=== PATIENT | male | born 1970 | race Caucasian/White ===

== ENCOUNTER → 2020-07-08 | Outpatient (CLI) | payer OTHER, SELFPAY | LOC: M LABSMTC 14:04 | PROVIDERS: ATTEND Family Medicine | DX: Z20.822 Contact with and (suspected) exposure to COVID-19 (principal) | CPT/HCPCS: C9803; U0003 ==

== ENCOUNTER → 2021-07-07 | Outpatient (CLI) | payer OTHER ==
[~2021-07-07] MED LIST: IRBE75TA4 PO; LISI10TA22 PO; LOSA25TA13 PO; OMEP1CAP73 PO; TEST200I14 IM; VITA1CAP25 PO
== END ==
LOC: M LABSMTC 09:17
PROVIDERS: ATTEND Anesthesiology
DX: Z01.812 Encounter for preprocedural laboratory examination (principal); Z11.52 Encounter for screening for COVID-19

== ENCOUNTER → 2021-10-13 | Outpatient (CLI) | payer OTHER | LOC: M LABSMTC 09:06 | PROVIDERS: ATTEND Anesthesiology | DX: Z01.818 Encounter for other preprocedural examination (principal); Z11.52 Encounter for screening for COVID-19 ==

== ENCOUNTER 2021-10-18 06:33 | Day surgery (SDC) | payer OTHER ==
[~2021-10-18] VITALS: Ht 175.3 cm; Wt 156.4 kg
[~2021-10-18 06:33] MED LIST changes: +NS 1,000 ML IV ONE
[2021-10-18] MEDS ORDERED: fentaNYL 100 MCG/2 ML INJECTION As Ordered ONE (07:44)
[2021-10-18] MEDS ORDERED: LIDOCAINE 2% 100MG/5ML SDV (FOR ANES.) As Ordered ONE (07:44)
[2021-10-18] MEDS ORDERED: propofoL 500 MG/50 ML VIAL As Ordered ONE (07:44)
[2021-10-18 08:20] VITALS: BP 125/80
== END 2021-10-18 08:45 | disposition home or self-care (01) ==
LOC: M OPP 06:33
PROVIDERS: ATTEND Internal Medicine Gastroenterology
DX: Z12.11 Encounter for screening for malignant neoplasm of colon (principal); K63.5 Polyp of colon; K57.30 Diverticulosis of large intestine without perforation or abscess without bleeding; K31.89 Other diseases of stomach and duodenum; R12 Heartburn; K21.00 Gastro-esophageal reflux disease with esophagitis, without bleeding; I10 Essential (primary) hypertension; Z79.890 Hormone replacement therapy; Z79.899 Other long term (current) drug therapy; F17.210 Nicotine dependence, cigarettes, uncomplicated
CPT/HCPCS: 43239; 45380; 45385; 88305; J3010

== ENCOUNTER 2024-12-28 09:30 | Emergency (ER) | payer OTHER ==
[~2024-12-28] VITALS: Ht 175.3 cm; Wt 98.6 kg
[~2024-12-28 09:30] MED LIST changes: +IRBE75TA11 PO; -IRBE75TA4 PO; -NS 1,000 ML IV ONE
[2024-12-28] MEDS: PANTOPRAZOLE 40MG VIAL IV ONE (10:21)
[2024-12-28] MEDS: ONDANSETRON 4MG 2ML VIAL IV ONE (10:21)
[2024-12-28] MEDS: NS (Normal Saline) 0.9% 1,000 ML IV SCH (10:21)
[2024-12-28 10:58] LABS: ALT/SGPT 24 U/L (7.0-40); AST/SGOT 27 U/L (<34); CALCIUM LEVEL 9.1 MG/DL (8.5-10.1); CARBON DIOXIDE LEVEL 24 MMOL/L (20-31); CHLORIDE LEVEL 107 MMOL/L (98-107); CREATININE FOR GFR 0.73 MG/DL (0.70-1.30); GLOMERULAR FILTRATION RATE > 90.0 (>56); POTASSIUM SERUM 4.8 MMOL/L (3.5-5.1); SODIUM LEVEL 145 MMOL/L (136-145)
[2024-12-28 11:10] LABS: BASO # 0.1 10^3/uL (0.0-0.2); BASO % 0.7 % (0.0-1.0); EOS # 0.1 10^3/uL (0.0-0.5); EOS % 0.9 % (0.0-3.0); LYMPH # 0.9 10^3/uL (1.5-5.0); LYMPH % 8.8 % (24.0-44.0); MONO # 0.4 10^3/uL (0.0-0.8); MONO % 3.7 % (2.0-8.0); NEUTROPHILS # 8.3 10^3/uL (1.5-8.5); NEUTROPHILS % 85.7 % (36.0-66.0); PLATELET COUNT, AUTOMATED 199 10^3/uL (150-450)
[2024-12-28] MEDS ORDERED: ISOVUE-370 76% 100 ML VIAL As Ordered ONE (12:26)
[2024-12-28] MEDS ORDERED: GASTROGRAFIN SOLUTION 30 ML As Ordered ONE (12:29)
[2024-12-28] MEDS: GASTROGRAFIN SOLUTION 30ML PO ONE (13:14)
[2024-12-28 14:12] VITALS: BP 100/57; TEMP 98.4; O2SAT 94
== END 2024-12-28 14:15 | disposition short-term general hospital (02) ==
LOC: M ED 09:30
DX: K63.1 Perforation of intestine (nontraumatic) (principal); I45.10 Unspecified right bundle-branch block; I10 Essential (primary) hypertension; Z79.899 Other long term (current) drug therapy; Z79.890 Hormone replacement therapy
CPT/HCPCS: 74021; 74177; 80048; 80076; 83690; 85025; 93005; 93041; 94760; 96374; 96375; 99285; J2405; J2470; J3010; Q9963; Q9967